=== PATIENT | male | born 2005 | race Two or more races ===

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

== ENCOUNTER 2025-02-02 16:50 | Emergency (ER) | payer BC, SELFPAY ==
[2025-02-02 16:52] VITALS: BP 124/83; PULSE 81; RESP 18; TEMP 36.7; O2SAT 100; BMI 26.4
--- NOTE | 2025-02-02 17:02 | PC.NURSE ---
Lan SIMMS at bedside
--- NOTE | 2025-02-02 17:11 | ED_ITS ---
<Statement entered by Ann-Marie Cheng MD - 02/02/25 23:10> I was consulted by the DEREK, and we discussed the complexity of the problems being addressed. I approved the treatment and management plan for this patient's care in the emergency department, thus performing a substantive portion of the medical decision making. Ann-Marie Cheng MD, MARILEE, FACEP Discharge Plan Disposition Patient Disposition: Home, Self-Care Condition: Good Referrals Follow up/Referrals: Nicolás Mello MD [Primary Care Provider] - See instructions Activity Restrictions/Add. Instructions Additional Instructions/Restrictions: Please keep clean dry and covered with a nonocclusive dressing. You may wash with soap and water pat dry. If you notice any redness redness drainage or swelling return to the emergency department as needed. Clinical Impressions Clinical Impression: Laceration of left buttock Qualifiers: Encounter type: initial encounter Qualified Code(s): S31.821A - Laceration without foreign body of left buttock, initial encounter Instructions Patient Instructions: DI for Laceration Repair, DI for Laceration Repair-Skin Glue Print Language Print Language: Yakut Discharge ED Provider: Ann-Marie Cheng General Adult HPI General Chief complaint: Wound/Laceration Stated complaint: AO 02/02/25 1545 laceration left butt check Time Seen by Provider: 02/02/25 17:11 Mode of Arrival: Ambulatory Source of Information: Patient Description of Symptoms (Recalled from ER Triage Doc. by RN): Pt was playing basketball and fell through a glass door has a laceration to his left buttocks. Laceration is about 1 in length. T-dap is UTD History of Present Illness HPI narrative: Patient presents for a laceration to his left buttock. Patient was playing basketball with his brother in the house and backed into a glass door and the glass broke cutting his left buttock. He has no numbness no tingling bleeding is controlled. Related Data Allergies Allergy/AdvReac Type Severity Reaction Status Date / Time No Known Allergies Allergy Verified 10/07/23 14:31 [facility] Disclaimer: The information contained in this section may have been updated after the patient was seen, as this information can be updated by other users. Social History Smoking Status: Never smoker alcohol intake: never substance use type: denies use current occupational status: other Travel in the last 8 weeks: None household members: family housing: house Have you lived/traveled outside [place] in past 30 days?: No Contact w/someone who lives/traveled outside US past 30 days?: No Exposure to someone with infectious disease in past 14 days?: No Do you have a fever (greater than 100.4 F or 38 C)?: No Have you tested positive for COVID-19: No Exposed to someone with COVID-19 in past 14 days?: No Do you have a sore throat?: No Do you have a cough?: No Do you have any weakness?: No Do you have any diarrhea?: No Are you experiencing any unusual bleeding?: No Do you have any muscle aches/pain?: No Do you have any abdominal pain?: No Are you experiencing loss of taste or smell?: No Other Medical History Have you received the Flu Vaccine for this season: No Have you received the Pneumonia Vaccine: No ROS Obtained: Yes Systems reviewed as appropriate & no additional complaints except as documented Physical Exam General General appearance: alert Respiratory Respiratory exam: Present normal lung sounds bilaterally Cardiovascular Cardiovascular exam: Present regular rate Neurological Exam Neurological exam: Present alert and oriented X3 Medical Decision Making Medical Records Screening: Per USPSTF and CDC recommendations, given the prevalence of disease in our region, it is our hospital?s policy to screen for HIV and viral Hepatitis for all patients aged 18 and over and those with ongoing risk factors. Rhys Inquiry Pt receiving controlled substance: No Vital Signs: 02/02/25 16:52 02/02/25 17:35 Temperature 98.1 F 98.1 F Temperature Source Oral Oral Pulse Rate 75 Pulse Rate [Right] 81 Respiratory Rate 18 16 Blood Pressure 120/80 Blood Pressure [Right Arm] 124/83 Blood Pressure Mean [Right Arm] 96 Blood Pressure Source Automatic Cuff Blood Pressure Source [Right Arm] Automatic Cuff Blood Pressure Position [Right Arm] Sitting 02 Sat by Pulse Oximetry 100 Oxygen Delivery Method Room Air Room Air Orders (Tests/Meds): ED MEDICATIONS Discontinued Medications Generic Name Dose Route Start Last Admin Trade Name Freq PRN Reason Stop Dose Admin Tetanus/Reduced Diphtheria/Acell Pertussis 0.5 ml 02/02/25 17:13 02/02/25 17:22 Tet/Diphth/Pert-Adult 0.5ml Syringe IM 02/02/25 17:14 0.5 ml .ONCE ONE Administration Medical Decision Narrative: In summary patient is a 19-year-old male who presents to the emergency [facility] for evaluation of left buttock laceration. Patient is hemodynamically stable upon arrival, afebrile. Physical exam is remarkable for a 3 cm linear superficial laceration at the top of the posterior lateral buttock.. Differential diagnosis includes superficial versus deep complex laceration. Initial workup was considered however after physical exam it is evident that the wound is only superficial and does not penetrate deep structures thus further workup deferred. Initial interventions include Tdap. Wound was cleaned and examined and it is indeed a very superficial laceration and does not penetrate deeper layers. Wound is linear 3 cm in length. Wound edges are easily approximated and discussion was made with the patient and parent and wound is amenable to Dermabond and Steri-Strips as opposed to suture repair and I offered them the option. Via patient directed decision making they elected to go with Dermabond and Steri-Strips. Subsequently wound was closed with Dermabond and Steri-Strips for reinforcement with good wound edge approximation and hemostatic control. Patient was given wound care instructions including keeping it clean dry and covered strict return precautions including redness pain drainage and swelling. Patient is appropriate for discharge with strict return precautions. Procedures Laceration Laceration 1: Site: other (Left buttock) Side (If applicable): left Size (cm): 3 Description: linear Depth: simple, single layer Pre-repair: wound explored, irrigated extensively and deep structures intact Skin layer closed with: Dermabond and other (Steri-Strips) Critical Care Critical Care Time Critical Care Time: No
[2025-02-02] MEDS: TET/DIPHTH/PERT-ADULT 0.5ML SYRINGE 0.5 ML IM (17:22)
[2025-02-02 17:35] VITALS: BP 120/80; PULSE 75; RESP 16; TEMP 36.7; O2SAT 98
== END 2025-02-02 18:04 | disposition home or self-care (01) ==
PROVIDERS: Emergency Provider Student in an Organized Health Care Education/Training Program; PCP Family Medicine
DX: S31.821A Laceration without foreign body of left buttock, initial encounter (principal); Z23 Encounter for immunization; W18.02XA Striking against glass with subsequent fall, initial encounter; Y93.67 Activity, basketball; Y92.009 Unspecified place in unspecified non-institutional (private) residence as the place of occurrence of the external cause
CPT/HCPCS: 90471; 90715; 99283

== ENCOUNTER 2025-03-15 20:27 | Emergency (ER) | payer BC, SELFPAY ==
[2025-03-15 20:35] VITALS: BP 143/72; PULSE 79; RESP 20; TEMP 37.4; O2SAT 99; BMI 26.4
--- NOTE | 2025-03-15 20:50 | ED_ITS ---
Discharge Plan Disposition Patient Disposition: Home, Self-Care Chief Complaint: Skin/Abscess/Foreign Body Referrals Follow up/Referrals: Nicolás Mello MD [Primary Care Provider] - See instructions Activity Restrictions/Add. Instructions Additional Instructions/Restrictions: Follow-up with your family doctor as needed for this visit to the emergency department. Stitches will dissolve in 7 to 10 days, do not pull them out. When cleaning your eyebrow, dab with warm, soapy water and dab dry, do not scrub or the stitches can pop out. Clinical Impressions Clinical Impression: Facial laceration Instructions Patient Instructions: DI for Skin Abscess Print Language Print Language: Cymro Discharge ED Provider: Darren Hernandez General Adult HPI General Chief complaint: Skin/Abscess/Foreign Body Stated complaint: AO 03/15/25 2000 laceration right eyebrow Time Seen by Provider: 03/15/25 20:29 Mode of Arrival: Ambulatory Source of Information: Patient and Parent(s) Description of Symptoms (Recalled from ER Triage Doc. by RN): pt reports he was playing basketball when he and another player collided and struck his eyebrow on the other players eyebrow. pt has a lac through the right eyebrow, pt denies any LOC or any other complaints at this time. History of Present Illness HPI narrative: Please note that above description of symptoms, in this electronic medical record under categorization of recalled from ER triage doctor by RN are reflective of an initial nursing assessment, however, is not reflective of my full history and physical exam that was personally taken and clarified. Consequentially, this preceding description of symptoms, which may include the patient's categorized chief complaint in the EMR, do not reflect my personal clinical impression, and the ultimate description of history of present illness and patient stated complaints should be deferred to this section of the note. Unless stated otherwise or congruent with this section of the note, additional signs, symptoms, or incongruence should be interpreted as inaccurate with my clinical impression. Related Data Allergies Allergy/AdvReac Type Severity Reaction Status Date / Time No Known Allergies Allergy Verified 10/07/23 14:31 [facility] Disclaimer: The information contained in this section may have been updated after the patient was seen, as this information can be updated by other users. Social History Smoking Status: Never smoker alcohol intake: never substance use type: denies use current occupational status: other Travel in the last 8 weeks?: None household members: family housing: house Have you lived/traveled outside US in past 30 days?: No Contact w/someone who lives/traveled outside [place] past 30 days?: No Exposure to someone with infectious disease in past 14 days?: No Do you have a fever (greater than 100.4 F or 38 C)?: No Have you tested positive for COVID-19?: No Exposed to someone with COVID-19 in past 14 days?: No Do you have a sore throat?: No Do you have a cough?: No Do you have any weakness?: No Do you have any diarrhea?: No Are you experiencing any unusual bleeding?: No Do you have any muscle aches/pain?: No Do you have any abdominal pain?: No Are you experiencing loss of taste or smell?: No Other Medical History Have you received the Flu Vaccine for this season: No Have you received the Pneumonia Vaccine: No ROS Obtained: Yes All systems reviewed & no additional complaints except as docu mented Physical Exam General General appearance: alert Head Head exam: atraumatic and normocephalic Eye Eye exam: Present normal appearance, PERRL and EOMI Neck Neck exam: Present normal inspection, full ROM and trachea midline Respiratory Respiratory exam: Absent respiratory distress, wheezes, stridor, accessory muscle use or prolonged expiratory phase Cardiovascular Cardiovascular exam: Present other (Pulses equal symmetric in upper and lower extremities) Abdominal Exam Abdominal exam: Present soft; Absent distention, tenderness or pulsatile mass Extremities Exam Extremities exam: Absent edema Neurological Exam Neurological exam: Present alert, oriented X3 and CN II-XII intact; Absent motor sensory deficit Skin Skin exam: Present warm and dry; Absent diaphoresis or erythema Medical Decision Making Medical Records Medical records reviewed: Yes I reviewed the patient's medical records. Screening: Per USPSTF and CDC recommendations, given the prevalence of disease in our region, it is our hospital?s policy to screen for HIV and viral Hepatitis for all patients aged 18 and over and those with ongoing risk factors. Rhys Inquiry Pt receiving controlled substance: No Rhys was queried for this patient: No Vital Signs: 03/15/25 20:35 Temperature 99.4 F Temperature Source Oral Pulse Rate [Right] 79 Respiratory Rate 20 Blood Pressure [Right Arm] 143/72 H Blood Pressure Mean [Right Arm] 95 02 Sat by Pulse Oximetry 99 Oxygen Delivery Method Room Air Medical Decision Narrative: 19-year-old male presenting with face laceration. He was playing basketball just prior to arrival. He hit his forehead against another person's forehead and had an immediate laceration, came in for further evaluation. No loss of consciousness. No other trauma sustained. Vision is okay, minimally painful, came in for stitches. History obtained with patient and mother. On arrival, very clinically well, he has a 3 cm laceration overlying his right eyebrow that does not violate all the way through the subcutaneous tissue, but gapes open. No tenderness about the orbital rim. No evidence of hyphema, proptosis, entrapment, conjunctival hemorrhage, pupillary changes, cellulitic change, obvious foreign body, or otherwise irregular ocular findings. Patient [place] CT head negative, CT head not deemed necessary. Laceration was irrigated ext ensively, numbed with lidocaine, closed with 4 sutures, absorbable Vicryl. Because patient at baseline without signs or symptoms of clinical decompensation, deemed appropriate for discharge. I discussed my clinical impression with patient and answered all questions. At this time, the evidence for any other entities in the differential is insufficient to warrant any further testing or ED observation. This was explained as well. Advisory was given that persistent or worsening symptoms require further evaluation. I confirmed the understanding of this discussion. Flooring Sales Manager disclaimer Much of this encounter note is an electronic tool and die supervisor spoken language to printed text. Electronic tool and die supervisor of the spoken language may permit errors. Although I have reviewed the note, some errors may still exist. Procedures Laceration Laceration 1: Site: face Side (If applicable): right Size (cm): 3 Description: linear Depth: involves subcutaneous layer Local Anesthetic: lidocaine 1% Amount of anesthesia used (mL): 5 Pre-repair: wound explored and irrigated extensively Skin layer closed with: vicryl Size (cm): 5-0 Number of sutures: 4 Technique: simple, interrupted Critical Care Critical Care Time Critical Care Time: No
[2025-03-15 20:54] VITALS: BP 123/78; PULSE 79; RESP 18; TEMP 37.1; O2SAT 100
== END 2025-03-15 20:57 | disposition home or self-care (01) ==
PROVIDERS: Emergency Provider Emergency Medicine; PCP Family Medicine
DX: S01.81XA Laceration without foreign body of other part of head, initial encounter (principal); W50.0XXA Accidental hit or strike by another person, initial encounter; Y93.67 Activity, basketball
CPT/HCPCS: 12002; 99283